=== PATIENT | male | born 1980 | race American Indian/Alaskan Native ===

== ENCOUNTER 2018-05-27 17:24 | Emergency (ER) | payer BC ==
--- NOTE | 2018-05-27 19:31 | XRay Report ---
FINAL REPORT EXAM: XR SHOULDER 2+V LT HISTORY: shoulder injury TECHNIQUE: Frontal and Y-views left shoulder Comparison: None FINDINGS: There is anterior inferior displacement of the left humeral head relative to the glenoid. There is no definite evidence of fracture. However, a subtle fracture could be missed. IMPRESSION: 1. Anterior inferior displacement of the left humeral head relative to the glenoid. 2. No definite evidence of fracture. However, a subtle fracture could be missed. Re-evaluation on the postreduction images will be helpful.
[2018-05-27] MEDS ORDERED: ZOFRAN IV ONE (19:46)
[2018-05-27] MEDS ORDERED: TORADOL IV ONE (19:46)
[2018-05-27] MEDS ORDERED: SUBLIMAZE IV ONE (19:46)
--- NOTE | 2018-05-27 19:56 | Emergency Department Report ---
HPI - General Chief Complaint: Shoulder Injury Time Seen by Provider: 05/27/18 19:45 - HPI HPI: Room 20 The patient is a 38-year-old male presented with a chief complaint of left shoulder pain. The patient states that approximately 15:00 he was walking downstairs and he slipped and fell backwards landing on his left elbow. The patient states he felt his left shoulder pop out of place. Patient only complains of pain in the left shoulder. Patient denies loss of consciousness. Patient gives his pain a score of 9.5/10 Location: Left shoulder Duration: [See above] Quality: Pain Severity: 9.5/10 Modifying factors: [see above] Context: [see above] Mode of transportation: [not driving] ED Past Medical Hx - Past Medical History Hx Hypertension: Yes - Surgical History Past Surgical History?: No - Family History Family history: no significant - Social History Smoking Status: Never Smoker Substance Use Type: Alcohol (occasional), Marijuana - Medications Home Medications: Home Medications Medication Instructions Recorded Confirmed Last Taken Type Cyclobenzaprine [Flexeril] 10 mg PO TID PRN #14 tablet 05/27/18 Unknown Rx HYDROcodone/APAP 5-325 [[place] 1 each PO Q6HR PRN #20 tablet 05/27/18 Unknown Rx 5/325] Ibuprofen [Motrin 800 MG tab] 800 mg PO Q8HR PRN #20 tablet 05/27/18 Unknown Rx Lisinopril/Hydrochlorothiazide 1 tab PO QDAY 05/27/18 05/27/18 Unknown History [Zestoretic 20-12.5 mg] ED Review of Systems ROS: Stated complaint: RT SHOULDER DISLOCATED Other details as noted in HPI Constitutional: no symptoms reported Eyes: denies: eye pain ENT: denies: throat pain Respiratory: no symptoms reported Cardiovascular: denies: chest pain Endocrine: no symptoms reported Gastrointestinal: denies: abdominal pain Genitourinary: denies: dysuria Musculoskeletal: arthralgia Neurological: denies: headache Physical Exam - Physical Exam Vital Signs: Vital Signs 05/27/18 18:49 Temperature 98.8 F Pulse Rate 101 H Respiratory 17 Rate Blood Pressure 186/121 O2 Sat by Pulse 97 Oximetry Physical Exam: GENERAL: The patient is well-developed well-nourished male lying on stretcher not appearing to be in acute distress. [] HEENT: Normocephalic. Atraumatic. Extraocular motions are intact. Patient has moist mucous membranes. NECK: Supple. Trachea midline CHEST/LUNGS: There is no respiratory distress noted. HEART/CARDIOVASCULAR: Regular. There is no tachycardia. 2+ left radial pulse SKIN: There is no rash. There is no edema. There is no diaphoresis. NEURO: The patient is awake, alert, and oriented. The patient is cooperative. The patient has normal speech and gait. MUSCULOSKELETAL: There is deformity of the left shoulder. There is decreased range of motion of the left shoulder. ED Course Vital Signs 05/27/18 18:49 Temperature 98.8 F Pulse Rate 101 H Respiratory 17 Rate Blood Pressure 186/121 O2 Sat by Pulse 97 Oximetry - Orthopedic Joint Reduction Joint #1 Consent Obtained: verbal consent Side: left Joint Reduction Location: shoulder Analgesia: moderate sedation (etomidate 14 mg was used for both attempts at reduction) Shoulder Technique Used (if applicable): traction/counter-traction Technique Used: traction/counter-traction Post-Reduction Neuro Exam: intact Post-Reduction Vascular Exam: intact Post Reduction X-Ray Obtained: Yes Post Reduction X-Ray Results: reduced (after first attempt post reduction x-ray revealed the attempt was unsuccessful. After second attempt post reduction x- ray showed reduction of previous dislocation) Splint Applied: Yes (sling) ED Medical Decision Making - Radiology Data Radiology results: report reviewed (left shoulder x-ray), image reviewed ( shoulder x-ray) [facility] [address] [place] [address] XRay Report Signed Patient: DOLLY VALLE MR#: [id number] : 1979 Acct:[id number] Age/Sex: 38 / M ADM Date: 05/27/18 Loc: ED Attending Dr: Ordering Physician: EDWARD KNIGHT MD Date of Service: 05/27/18 Procedure(s): XR shoulder 2+V LT Accession Number(s): [id number] cc: ED MD EUGENE Fluoro Time In Minutes: FINAL REPORT EXAM: XR SHOULDER 2+V LT HISTORY: shoulder injury TECHNIQUE: Frontal and Y-views left shoulder Comparison: None FINDINGS: There is anterior inferior displacement of the left humeral head relative to the glenoid. There is no definite evidence of fracture. However, a subtle fracture could be missed. IMPRESSION: 1. Anterior inferior displacement of the left humeral head relative to the glenoid. 2. No definite evidence of fracture. However, a subtle fracture could be missed. Re-evaluation on the postreduction images will be helpful. Transcribed By: ED Dictated By: ANNA GREGORY MD Electronically Authenticated By: ANNA GREGORY MD Signed Date/Time: 05/27/181928 DD/ 28 TD/TT: 05/27/181928 - Differential Diagnosis shoulder dislocation Critical care attestation.: If time is entered above; I have spent that time in minutes in the direct care of this critically ill patient, excluding procedure time. ED Disposition Clinical Impression: Dislocation of shoulder, left, closed, Acute pain of left shoulder, Bankart lesion of left shoulder Disposition: - TO HOME OR SELFCARE Is pt being admited?: No Does the pt Need Aspirin: No Condition: Stable Instructions: Shoulder Dislocation (ED) Additional Instructions: Return to the emergency department immediately should you develop worsening symptoms, fever, inability to tolerate food or liquid or any other concerns. Prescriptions: Cyclobenzaprine [Flexeril] 10 mg PO TID PRN #14 tablet PRN Reason: Muscle Spasm HYDROcodone/APAP 5-325 [Chan[place] 5/325] 1 each PO Q6HR PRN #20 tablet PRN Reason: Pain Ibuprofen [Motrin 800 MG tab] 800 mg PO Q8HR PRN #20 tablet PRN Reason: Pain, Moderate (4-6) Referrals: JOAN SUTTON MD [Staff Physician] - 3-5 Days (Dr. Sutton is an orthopedic surgeon. Please follow up with him for further evaluation) Time of Disposition: 22:08
[2018-05-27] MEDS ORDERED: AMIDATE IV ONE ×3 (20:09→21:15)
--- NOTE | 2018-05-27 20:53 | XRay Report ---
FINAL REPORT EXAM: XR SHOULDER 1V LT HISTORY: post reduction TECHNIQUE: Frontal view left shoulder Comparison: Pre reduction x-ray also performed today FINDINGS: There continues to be evidence of anterior inferior dislocation of the left humeral head relative to the glenoid. There is no definite evidence of fracture. IMPRESSION: 1. Persistent evidence of anterior inferior dislocation of the left humeral head relative to the glenoid.
--- NOTE | 2018-05-27 21:58 | XRay Report ---
FINAL REPORT EXAM: XR SHOULDER 1V LT HISTORY: postreduction second attempt TECHNIQUE: Frontal view left shoulder Comparison: Pre reduction x-ray also performed today FINDINGS: There has been successful reduction of the previously demonstrated dislocation with the humeral head now articulating normally with the glenoid. There is the appearance of a Hill-Sachs type fracture deformity of the lateral aspect of the humeral head. There is the appearance of a Bankart type fracture deformity of the anterior inferior aspect of the glenoid. IMPRESSION: 1. Successful reduction of previously demonstrated anterior inferior dislocation. 2. Appearance of a Hill-Sachs type fracture deformity of the lateral aspect of the humeral head. 3. Appearance of a Bankart type fracture deformity of the anterior inferior aspect of the glenoid.
[2018-05-27 22:29] VITALS: BP 163/94
== END 2018-05-27 22:14 | disposition home or self-care (01) ==
LOC: ED 17:24
DX: S43.005A Unspecified dislocation of left shoulder joint, initial encounter (principal); I10 Essential (primary) hypertension; F12.10 Cannabis abuse, uncomplicated; W01.0XXA Fall on same level from slipping, tripping and stumbling without subsequent striking against object, initial encounter; Y93.01 Activity, walking, marching and hiking; Y92.89 Other specified places as the place of occurrence of the external cause; Y99.8 Other external cause status
CPT/HCPCS: 23650; 73020; 73030; 96374; 96375; 96376; 99284; J1885; J2405; J3010

== ENCOUNTER 2018-05-30 16:11 | Emergency (ER) | payer BC ==
--- NOTE | 2018-05-30 16:40 | Emergency Department Report ---
Upper Extremity - HPI Chief Complaint: Shoulder Injury Stated Complaint: SHOULDER DISLOCATED Time Seen by Provider: 05/30/18 16:36 Upper Extremity: Left Shoulder Occurred When: Today Symptoms: Yes Pain with Movement, Yes Limited Range of Movement, Yes Weakness Other History: She is a 38-year-old male that presents emergency room with left shoulder pain 1 hour. Patient states she was here on Monday and had denies past medical history. Patient states his shoulder dislocated on Monday and had his shoulder reduced here. Patient has been in a sling. Patient states she was getting out of bed and he felt a pop in his left shoulder and a large amount of pain. Patient states the pain is 10 out of 10. Patient states the pain is better with rest and worse with movement. Patient states is difficult to move. She denies past medical history except htn. Patient denies chest pain shortness of breath. Patient denies other physical complaints. ED Review of Systems ROS: Stated complaint: SHOULDER DISLOCATED Other details as noted in HPI Constitutional: denies: chills, fever Eyes: denies: eye pain, eye discharge, vision change ENT: denies: ear pain, throat pain Respiratory: denies: cough, shortness of breath, wheezing Cardiovascular: denies: chest pain, palpitations Endocrine: no symptoms reported Gastrointestinal: denies: abdominal pain, nausea, diarrhea Genitourinary: denies: urgency, dysuria Musculoskeletal: denies: back pain, joint swelling, arthralgia Skin: denies: rash, lesions Neurological: denies: headache, weakness, paresthesias Psychiatric: denies: anxiety, depression Hematological/Lymphatic: denies: easy bleeding, easy bruising ED Past Medical Hx - Past Medical History Previous Medical History?: Yes Hx Hypertension: Yes - Surgical History Hx Appendectomy: Yes - Social History Smoking Status: Never Smoker Substance Use Type: None - Medications Home Medications: Home Medications Medication Instructions Recorded Confirmed Last Taken Type Cyclobenzaprine [Flexeril] 10 mg PO TID PRN #14 tablet 05/27/18 Unknown Rx Ibuprofen [Motrin 800 MG tab] 800 mg PO Q8HR PRN #20 tablet 05/27/18 Unknown Rx Lisinopril/Hydrochlorothiazide 1 tab PO QDAY 05/27/18 05/27/18 Unknown History [Zestoretic 20-12.5 mg] HYDROcodone/APAP 5-325 [[place] 1 each PO Q6HR PRN #20 tablet 05/30/18 Unknown Rx 5-325 mg TAB] Upper Extremity Exam - Exam General: Vital signs noted. No distress. Alert and acting appropriately. lungs cta. cv exam nl. Head and Torso: No HEENT Abnormality, No Neck Tenderness, No Chest/Lungs Abnormality, No Abdominal Tenderness, No Back Tenderness Shoulder Exam: Yes Shoulder Tenderness, Yes Shoulder Deformity, No Clavicle Tenderness, No Normal Range of Motion in Shoulder, No AC Joint Tenderness Arm Exam: No Arm/Humerus Tenderness, No Arm Deformity Elbow: No Elbow Tenderness, No Normal Range of Motion in Elbow, No Elbow Deformity Forearm: No Forearm Tenderness, No Forearm Deformity, No Pain with Pronation, No Pain with Supination Wrist: Yes Normal ROM in Wrist, No Wrist Tenderness, No Wrist Deformity, No Snuffbox Tenderness, No Pain with Axial Thumb Compression Hand: Yes Normal ROM in Digit(s), No Hand Tenderness, No Hand Deformity, No Digit Tenderness, No Digit(s) Deformity, No Tendon Dysfunction CMS Exam: No Broken Skin, No Normal Distal Pulses, No Normal Capillary Refill, No Normal Distal Sensation ED Course Vital Signs 05/30/18 16:15 Temperature 97.9 F Pulse Rate 78 Respiratory 18 Rate Blood Pressure 164/102 O2 Sat by Pulse 100 Oximetry - Reevaluation(s) Reevaluation #1: We'll wait for x-rays to be done and if patient is shoulder reduction will be shoulder reduction under moderate sedation 05/30/18 16:40 Shoulder reduced. Patient required multiple doses of multiple medications. see nurses notes and procedure note. 05/30/18 18:25 Reevaluation #2: Patient doing well at this time. Patient on equipment monitor phototypesetting. Blood pressure and vital signs are stable 05/30/18 19:00 Reevaluation #3: Patient in bed and answering all questions appropriately. Patient is a note 4. Patient is tolerating by mouth intake. 05/30/18 20:18 Patient is ambulatory around room. Patient appears to return to baseline. Patient will be discharged home 05/30/18 20:46 Patient states he is almost out of the pain medication was given from his last visit. Patient will be given another prescription for hydrocodone. Patient informed to take medication. Patient given discharge instructions. Patient voiced understanding of discharge instructions. Patient given return to ER instructions. Patient given Dr. Sutton's discharge instructions as well. 05/30/18 20:57 - Consultations Consultation #1: Stress case with Dr. Sutton, orthopedist. will see the patient is ON Monday. And recommends patient stays in the sling for duration of time until he sees him and does not raise his arm above shoulder level. 05/30/18 20:55 - Moderate Sedation Indications: fracture/dislocation redu ASA Class: I Mallampati Airway Score: 1 Preparation: equipment monitor phototypesetting applied, pulse oximeter, capnometry used, supplemental O2 applied, reversal agents at bedside, suction/airway equipment at bedside, IV secured Fentanyl: IV Fentanyl Dose: 100 Ketamine: IV Ketamine Dose: 100 IV Propofol Dose (mgs): 200 IV Etomidate Dose (mgs): 20 Complications: none Patient Tolerated Procedure: well - Orthopedic Joint Reduction Joint #1 Consent Obtained: verbal consent Time Out Performed: Yes Side: left Joint Reduction Location: shoulder Analgesia: moderate sedation Shoulder Technique Used (if applicable): Milch Technique Used: direct manipulation Post-Reduction Neuro Exam: intact Post-Reduction Vascular Exam: intact Post Reduction X-Ray Obtained: Yes Splint Applied: Yes Patient Tolerated Procedure: well ED Medical Decision Making - Radiology Data Radiology results: report reviewed, image reviewed interpreted by me: Shoulder inferior dislocation noted Post reduction film shows satisfactory reduction. FINAL REPORT EXAM: XR SHOULDER 2+V LT HISTORY: pain, ?dislocation . Prior dislocation 3 days ago which was subsequently reduced. Now rolling out of bed with possible new dislocation TECHNIQUE: AP and lateral views of the left shoulder PRIORS: X-rays left shoulder 05/27/2018 FINDINGS: There is a new anterior dislocation of the left humeral head. There is no evidence of acute fracture. Joint spaces are maintained and bony mineralization is normal. IMPRESSION: New anterior dislocation left humeral head. No evidence for fracture Transcribed By: [facility] Dictated By: BRITTANI BHAKTA MD Electronically Authenticated By: BRITTANI BHAKTA MD Signed Date/Time: 05/30/181921 FINDINGS: There has been successful reduction of the anterior dislocation seen previously. There is a bony density overlying the inferior glenoid which may represent a fracture fragment suggesting a Bankart fracture. No definite Hill-Sachs fracture is seen. Joint spaces are maintained and bony mineralization is normal. IMPRESSION: Satisfactory reduction of the anterior dislocation seen previously. Bony doubt fracture fragments is noted over the inferior glenoid rim suggesting a Bankart fracture. Transcribed By: [facility] Dictated By: BRITTANI BHAKTA MD Electronically Authenticated By: BRITTANI BHAKTA MD Signed Date/Time: 05/30/182034 - Medical Decision Making Chest 38-year-old male that presents to emergency room with complaints of shoulder pain. Patient found to have a dislocation. Patient has a history of dislocations. Patient was given moderate sedation in order to reduce his shoulder. Shoulder was successfully reduced. Patient monitored throughout the post reduction.. Patient also monitor for cardiac and vital signs during moderate sedation and reduction. See procedure notes. - Differential Diagnosis SHOULDER PAIN. TERRY, STRAIN. DISLOCATION Critical care attestation.: If time is entered above; I have spent that time in minutes in the direct care of this critically ill patient, excluding procedure time. ED Disposition Clinical Impression: Acute pain of left shoulder Dislocation of shoulder, left, closed Qualifiers: Encounter type: initial encounter Qualified Code(s): S43.005A - Unspecified dislocation of left shoulder joint, initial encounter Bankart lesion of left shoulder Qualifiers: Encounter type: initial encounter Qualified Code(s): S43.492A - Other sprain of left shoulder joint, initial encounter Disposition: DC- TO HOME OR SELFCARE Is pt being admited?: No Does the pt Need Aspirin: No Condition: Stable Instructions: Shoulder Dislocation (ED), Rotator Cuff Injury (ED) Additional Instructions: Patient to follow-up with primary care in 3-5 days. Patient to follow-up with orthopedist in 2 days. Patient to call for appointment. Patient to return to the ER if condition worsens. Patient to take medicines as directed. Patient to rest. Patient states Tylenol and ibuprofen when necessary for pain. Patient to continue to wear arm immobilizer and sling until seeing orthopedics. Patient to rest. No strenuous activities until cleared by orthopedist. Patient to not raise his arm above his shoulder level. Prescriptions: HYDROcodone/APAP 5-325 [[place] 5-325 mg TAB] 1 each PO Q6HR PRN #20 tablet PRN Reason: Pain Referrals: JACKSON RASHEED MD [Primary Care Provider] - 3-5 Days JOAN SUTTON MD [Staff Physician] - 3-5 Days Time of Disposition: 20:46
[2018-05-30] MEDS ORDERED: AMIDATE IV ONE (17:27)
[2018-05-30] MEDS ORDERED: SUBLIMAZE ONE ×2 (17:28→18:45)
[2018-05-30] MEDS ORDERED: DIPRIVAN 10 MG/ML IV ONE ×2 (18:12→18:14)
[2018-05-30] MEDS ORDERED: NACL 0.9% 1000 ML 1,000 ML ONE (18:12)
[2018-05-30] MEDS ORDERED: NACL 0.9% 1000 ML 1,000 ML IV ONE (18:14)
[2018-05-30] MEDS ORDERED: SUBLIMAZE IV ONE (18:43)
[2018-05-30] MEDS ORDERED: KETAMINE HCL IV ONE (18:50)
[2018-05-30] MEDS ORDERED: KETALAR IV ONE (18:55)
--- NOTE | 2018-05-30 19:23 | XRay Report ---
FINAL REPORT EXAM: XR SHOULDER 2+V LT HISTORY: pain, ?dislocation . Prior dislocation 3 days ago which was subsequently reduced. Now rolling out of bed with possible new dislocation TECHNIQUE: AP and lateral views of the left shoulder PRIORS: X-rays left shoulder 05/27/2018 FINDINGS: There is a new anterior dislocation of the left humeral head. There is no evidence of acute fracture. Joint spaces are maintained and bony mineralization is normal. IMPRESSION: New anterior dislocation left humeral head. No evidence for fracture
--- NOTE | 2018-05-30 20:36 | XRay Report ---
FINAL REPORT EXAM: XR SHOULDER 2+V LT HISTORY: shoulder pain. post reduction TECHNIQUE: AP and lateral views of the left shoulder PRIORS: Left shoulder x-rays 05/30/2018 at 2050 hours FINDINGS: There has been successful reduction of the anterior dislocation seen previously. There is a bony density overlying the inferior glenoid which may represent a fracture fragment suggesting a Bankart fracture. No definite Hill-Sachs fracture is seen. Joint spaces are maintained and bony mineralization is normal. IMPRESSION: Satisfactory reduction of the anterior dislocation seen previously. Bony doubt fracture fragments is noted over the inferior glenoid rim suggesting a Bankart fracture.
[2018-05-30 21:16] VITALS: BP 166/90
== END 2018-05-30 21:15 | disposition home or self-care (01) ==
LOC: ED 16:11
DX: S43.005A Unspecified dislocation of left shoulder joint, initial encounter (principal); S43.492A Other sprain of left shoulder joint, initial encounter; X58.XXXA Exposure to other specified factors, initial encounter; Y93.89 Activity, other specified; Y92.89 Other specified places as the place of occurrence of the external cause; Y99.8 Other external cause status
CPT/HCPCS: 23650; 73030; 96374; 99284; J2704; J3010; J7030